=== PATIENT | female | born 1960 | race Caucasian/White ===

== ENCOUNTER → 2019-02-17 | Day surgery (SDC) | payer BC ==
--- NOTE | 2019-02-18 09:25 | OP ---
DATE OF OPERATION: 02/17/2019 PREOPERATIVE DIAGNOSIS: Abnormal right mammography. POSTOPERATIVE DIAGNOSIS: Abnormal right mammography. PROCEDURE: Right breast stereotactic needle biopsy with clips. SURGEON: Una Flores MD ANESTHESIA: Local. COMPLICATIONS: None. This was a sterile procedure. INDICATION FOR PROCEDURE: The patient presented with a screening mammography that noted an increase in microcalcifications in the upper outer right breast; for which, a biopsy was recommended. The procedure was discussed with her including the need for a clip. PROCEDURE IN DETAIL: Patient was brought to [facility] in [place], laid prone on the Lor[place] table. Using the cranial approach, the calcifications in the upper outer breast were identified. A sterile prep was obtained. A target was chosen. There was a positive stroke margin. Using Betadine and 1% lidocaine, a 9-gauge Suros device was used to take several cores from this area. Cores showed calcification within them on specimen radiograph, and these were sent to Pathology in formalin. A clip was deployed in the area. Hemostasis was assured with direct pressure. The incision was closed with Steri-Strips. She tolerated the procedure well, left the breast imaging center in good condition. UNA FLORES M.D. [id number]
--- NOTE | 2019-02-18 10:59 | PATH ---
Surgical Pathology Report Patient Name: RAMOS RING [facility]. Rec. #: [id number] /Age/Gender: 1960 (Age: 58) / F Account: [id number] Location: [facility] Taken: 02/17/2019 Received: 02/17/2019 Reported: 02/18/2019 Physicians: Sharon Quintero M.D. Specimen(s) Received A: RIGHT BREAST SPECIMEN - WITH CALCIFICATIONS B: RIGHT BREAST SPECIMEN - WITHOUT CALCIFICATIONS Clinical History Nonpalpable lesion Mammographic findings: Microcalcification, suspicious Final Diagnosis A. BREAST, RIGHT, WITH CALCIFICATIONS, STEREOTACTIC CORE BIOPSY: BENIGN BREAST PARENCHYMA WITH STROMAL FIBROSIS, MICROCYSTS, SCLEROSING ADENOSIS WITH ASSOCIATED MICROCALCIFICATIONS. B. BREAST, RIGHT, WITHOUT CALCIFICATION, STEREOTACTIC CORE BIOPSY: BENIGN BREAST PARENCHYMA WITH STROMAL FIBROSIS, MICROCYSTS, SCLEROSING ADENOSIS WITH ASSOCIATED MICROCALCIFICATIONS. Electronically Signed Thalia Beaulieu M.D. Gross Description A. Received in formalin labeled "right breast with calcification," are 3 fischer-yellow, cylindrical portions of fibroadipose tissue ranging from 2.2-2.6 cm in length and averaging 0.3 cm in diameter. The specimens are submitted in toto in one cassette. B. Received in formalin labeled "right breast without calcifications," is a 2.4 x 2.2 x 0.3 cm aggregate of fischer-yellow, irregular to cylindrical portions of fibroadipose tissue. The formalin is filtered and the specimen is entirely submitted in one cassette. Time to formalin fixation: 5 minutes Total formalin fixation time: Approximately 6 hours. /02/17/2019 [facility]02/17/2019
== END | disposition home or self-care (01) ==
LOC: FMAMMOTONE 11:18
PROVIDERS: ATTEND Surgery
PROC: 0H9T3ZX Drainage of Right Breast, Percutaneous Approach, Diagnostic (ICD-10-PCS; principal; 2019-02-17)
DX: N60.21 Fibroadenosis of right breast (principal); N60.31 Fibrosclerosis of right breast
CPT/HCPCS: 19081; 76098-TC-FY